=== PATIENT | male | born 1970 | race Caucasian/White ===

== ENCOUNTER 2021-04-09 16:21 | Emergency (ER) | payer OTHER ==
[~2021-04-09] VITALS: Ht 180.3 cm; Wt 88.9 kg
--- NOTE | 2021-04-09 16:37 | NUR ---
TO ER BED 9, C/O SHORTNESS OF BREATH WHILE DRIVING, SATTING AT 100% ROOM AIR, BREATHING EVEN AND NON LABORED, CONNECTED TO MONITOR AND CHANGED INTO A GOWN.
--- NOTE | 2021-04-09 16:43 | NUR ---
S[facility] ESTABLISHED BLOOD DRAWN AND SENT TO LAB
[2021-04-09 16:53] LABS: BASOPHILS # (AUTO) 0.1 K/uL (0.0-0.2); BASOPHILS % (AUTO) 1.1 % (0.0-2.0); EOSINOPHILS % (AUTO) 1.9 % (0.0-6.0); HEMATOCRIT 45 % (39-51); HEMOGLOBIN 15.5 g/dL (13.5-17.5); LYMPHOCYTES % (AUTO) 29.1 % (20.0-44.0); MEAN CORPUSCULAR HGB CONC 34 g/dl (31.0-36.0); MEAN CORPUSCULAR VOLUME 84 fL (80-96); MONOCYTES # (AUTO) 0.5 K/uL (0.1-1.30); MONOCYTES % (AUTO) 7.7 % (2.0-12.0); NEUTROPHILS # (AUTO) 4.1 K/uL (1.8-8.9); NEUTROPHILS % (AUTO) 60.2 % (43.0-81.0); PLATELET COUNT (AUTO) 275 K/uL (150-450); RED BLOOD CELL COUNT(AUTO) 5.39 MIL/uL (4.5-6.0); WHITE BLOOD COUNT (AUTO) 6.8 K/uL (4.3-11.0)
[2021-04-09 17:05] LABS: CALCIUM, SERUM 8.4 mg/dL (8.5-10.1); CARBON DIOXIDE 27 mmol/L (21-32); CHLORIDE 104 mmol/L (98-107); GLUCOSE 112 mg/dL (74-106); POTASSIUM 3.8 mmol/L (3.5-5.1); SODIUM SERUM 140 mmol/L (136-145); UREA NITROGEN, BLOOD 15 mg/dL (7-18)
--- NOTE | 2021-04-09 18:34 | NUR ---
IV removed. Catheter intact and site benign. Pressure and 4x4 applied to site. No bleeding noted.Patient discharged to home in stable condition. Written and verbal after care instructions given. Patient verbalizes understanding of instruction.
[2021-04-09 18:35] VITALS: BP 112/63
== END 2021-04-09 18:35 | disposition home or self-care (01) ==
LOC: ER 16:25
DX: R06.00 Dyspnea, unspecified (principal); R94.31 Abnormal electrocardiogram [ECG] [EKG]
CPT/HCPCS: 36415; 71045-TC; 80048-TC; 83880; 84484-TC; 85025-TC